=== PATIENT | male | born 1995 | race Caucasian/White ===

== ENCOUNTER 2021-06-15 15:06 | Emergency (ER) | payer SELFPAY ==
[2021-06-15 16:06] LABS: HEMOGLOBIN 15.4 gm/dl (14.0-17.5); RED BLOOD COUNT 4.98 M/UL (4.20-5.50); WHITE BLOOD COUNT 6.8 K/UL (4.5-11.0)
[2021-06-15 16:49] LABS: BUN/CREATININE RATIO 14 (0-10)
== END 2021-06-15 17:45 | disposition left against medical advice (07) ==
LOC: ER1 15:06
PROVIDERS: Nurse Practitioner
DX: U07.1 COVID-19 (principal); F17.210 Nicotine dependence, cigarettes, uncomplicated
CPT/HCPCS: 0240U; 80053; 80307; 81001; 85025; 93005; 99283